=== PATIENT | female | born 1980 | race Caucasian/White ===

== ENCOUNTER 2023-04-23 13:55 | Inpatient (IN) | payer MEDICAID ==
[~2023-04-23] VITALS: Ht 167.6 cm; Wt 89.4 kg
[2023-04-23 14:04] VITALS: BP 145/70
[2023-04-23 14:26] LABS: APPEARANCE,URINE CLEAR (CLEAR); BILIRUBIN,URINE NEGATIVE (NEGATIVE); BLOOD, URINE 1+ (NEGATIVE); COLOR,URINE YELLOW (YELLOW); LEUKOCYTE ESTERASE ,URINE NEGATIVE (NEGATIVE); NITRITE, URINE NEGATIVE (NEGATIVE); PH,URINE 7.5 (5.0-9.0); UGLUCOSE NEGATIVE (NEGATIVE)
[2023-04-23 14:26] LABS: BASOPHILS % (AUTO) 0.5 % (0.0-2.0); EOSINOPHILS % (AUTO) 0.4 % (0.0-4.0); HEMATOCRIT 39.3 % (36-48); HEMOGLOBIN 13.2 g/dL (12.0-16.0); LYMPHOCYTES # (AUTO) 2.2 K/uL (2.5-16.5); MEAN CORPUSCULAR HEMOGLOBIN 28 pg (27-31); MEAN CORPUSCULAR HGB CONC 34 g/dL (33-37); MEAN CORPUSCULAR VOLUME 84.2 fL (80-94); MONOCYTES # (AUTO) 0.7 K/uL (0.8-1.0); MONOCYTES % (AUTO) 7.4 % (1.7-9.3); NEUTROPHILS % (AUTO) 66.7 % (42.2-75.2); PLATELET COUNT (AUTO) 322 K/uL (140-450); RED BLOOD CELL COUNT(AUTO) 4.66 MIL/uL (4.20-5.40); RED CELL DISTRIBUTION WIDTH 14.4 % (11.6-13.7); WHITE BLOOD COUNT (AUTO) 8.9 K/uL (4.8-10.8)
[2023-04-23 14:36] LABS: RBC,URINE 0-5 /HPF (0-5)
[2023-04-23 14:37] LABS: OTHER CRYSTALS,URINE SODIUM URATES 1+ /HPF (None Seen)
[2023-04-23 14:44] LABS: ALBUMIN 3.7 g/dL (3.4-5.0); ANION GAP 14.1 (8-16); CARBON DIOXIDE 26.4 mmol/L (21-32); CREATININE 0.6 mg/dL (0.6-1.3); POTASSIUM 3.5 mmol/L (3.5-5.1); TOTAL BILIRUBIN 0.7 mg/dL (0.0-1.0)
[2023-04-23] MEDS ORDERED: ONDANSETRON 4 MG ODT PO ONE (15:15)
[2023-04-23] MEDS ORDERED: FAMOTIDINE 20 MG TAB PO ONE (15:15)
[2023-04-23] MEDS ORDERED: ALUMINUM HYD/MAG/SIMETHICONE 30 ML UDC PO ONE (15:15)
[2023-04-23] MEDS ORDERED: FAMOTIDINE 20 MG TAB ONE (17:30)
[2023-04-23] MEDS ORDERED: ALUMINUM HYD/MAG/SIMETHICONE 30 ML UDC ONE (17:30)
[2023-04-23] MEDS ORDERED: ONDANSETRON 4 MG ODT ONE (17:31)
[2023-04-23] MEDS ORDERED: KETOROLAC 15 MG/ML VIAL IVP ONE (18:50)
[2023-04-23] MEDS ORDERED: ONDANSETRON 4 MG/2 ML VIAL IVP ONE (18:50)
[2023-04-23] MEDS ORDERED: NACL 0.9% 1,000 ML IV ONE (18:50)
[2023-04-23] MEDS ORDERED: MORPHINE SULFATE 4 MG/ML SYR IVP ONE ×2 (18:50→20:00)
--- NOTE | 2023-04-23 19:58 | NUR ---
Patient endorsed by Ish OLSON. Patient alert and comfortable in bed. No signs of distress.
[2023-04-23] MEDS: DEXT 5% /NACL 0.9% 1,000 ML IV SCH (20:45)
--- NOTE | 2023-04-23 20:45 | NUR ---
Patient will be admitted to care of Dr. Barajas. Admited to [facility]. Will go to room 112B. Belongings list completed. Report to Sydney OLSON.
[2023-04-23] MEDS ORDERED: POTASSIUM CHLORIDE 10 MEQ TABER PO PRN (22:10)
[2023-04-23] MEDS ORDERED: ACETAMINOPHEN 325 MG TAB PO PRN (22:10)
[2023-04-23] MEDS ORDERED: ZOLPIDEM 5 MG TAB PO PRN (22:10)
[2023-04-23] MEDS ORDERED: DOCUSATE SODIUM 100 MG GELCAP PO PRN (22:10)
[2023-04-23] MEDS ORDERED: guaiFENesin DM 200/20 MG-10 ML 10 ML UDC PO PRN (22:10)
--- NOTE | 2023-04-23 22:30 | NUR ---
PT WAS ADMITTED TO [facility] DEPARTMENT FROM ER VIA WHEEL CHAIR WITH DIAGNOSIS OF BILIARY COLIC. PT IS AOX4, AMBULATORY, ABLE TO VERBALIZE NEEDS AND ABLE TO FOLLOW COMMANDS. PT IS ON ROOM AIR AND ON NPO EXCEPT MEDS DIET. PT HAS IV ON RIGHT AC GAUGE 18 RUNNING WITH D5NS AT 125ML/HR. PT SKIN IS INTACT. PT WAS ORIENTED TO ROOM/HOSPITAL, BED BUTTONS AND CALL LIGHT. ALL SAFETY MEASURES IMPLEMENTED. BED IN LOW POSITION, BED WHEELS ON LOCK AND CALL LIGHT WITHIN REACH.
[2023-04-23 22:47] LABS: CHOL/HDL RATIO 3.7 (1-4.5); MAGNESIUM 1.9 mg/dL (1.8-2.4); PHOSPHORUS 3.8 mg/dL (2.5-4.9); THYROID STIMULATING HORMONE 1.54 uIU/mL (0.34-3.74)
[2023-04-24] VITALS: BP 130/69
--- NOTE | 2023-04-24 | NUR ---
PT IS ON SLEEP. CHEST RISE AND FALL SYMMETRICALLY NOTED. RESPIRATION IS EVEN AND UNLABORED. ALL SAFETY MEASURES IMPLEMENTED. BED IN LOW POSITION, BED WHEELS ON LOCK AND CALL LIGHT WITHIN REACH.
[2023-04-24] MEDS: MORPHINE SULFATE 2 MG/ML SYR IVP PRN ×3 (01:26→15:44)
[2023-04-24] MEDS: ONDANSETRON 4 MG/2 ML VIAL IM/IVP PRN (01:26)
--- NOTE | 2023-04-24 01:26 | NUR ---
PT WAS GIVEN PRN PAIN MEDICATION DUE TO ABDOMINAL PAIN WITH PAIN SCALE OF 8/10. ALL SAFETY MEASURES IMPLEMENTED. BED IN LOW POSITION, BED WHEELS ON LOCK AND CALL LIGHT WITHIN REACH.
--- NOTE | 2023-04-24 04:00 | NUR ---
CHECKED THE PT, STILL ON SLEEP. CHEST RISE AND FALL SYMMETRICALLY NOTED. RESPIRATION IS EVEN AND UNLABORED. ALL SAFETY MEASURES IMPLEMENTED. BED IN LOW POSITION, BED WHEELS ON LOCK AND CALL LIGHT WITHIN REACH.
[2023-04-24] MEDS: DEXT 5% /NACL 0.9% 1,000 ML IV SCH ×3 (04:48→20:45)
[2023-04-24 06:14] LABS: BASOPHILS % (AUTO) 0.5 % (0.0-2.0); EOSINOPHILS # (AUTO) 0.1 K/uL (0-0.4); EOSINOPHILS % (AUTO) 1.4 % (0.0-4.0); HEMATOCRIT 36.8 % (36-48); HEMOGLOBIN 12.3 g/dL (12.0-16.0); LYMPHOCYTES # (AUTO) 1.7 K/uL (2.5-16.5); LYMPHOCYTES % (AUTO) 38.7 % (20.5-51.1); MEAN CORPUSCULAR HEMOGLOBIN 28 pg (27-31); MEAN CORPUSCULAR HGB CONC 33 g/dL (33-37); MEAN CORPUSCULAR VOLUME 84.9 fL (80-94); MONOCYTES # (AUTO) 0.4 K/uL (0.8-1.0); MONOCYTES % (AUTO) 9.9 % (1.7-9.3); NEUTROPHILS # (AUTO) 2.2 K/uL (1.8-7.7); NEUTROPHILS % (AUTO) 49.5 % (42.2-75.2); PLATELET COUNT (AUTO) 276 K/uL (140-450); RED BLOOD CELL COUNT(AUTO) 4.34 MIL/uL (4.20-5.40); RED CELL DISTRIBUTION WIDTH 14.4 % (11.6-13.7); WHITE BLOOD COUNT (AUTO) 4.4 K/uL (4.8-10.8)
[2023-04-24 06:28] LABS: ANION GAP 11.3 (8-16); CARBON DIOXIDE 26.7 mmol/L (21-32); CREATININE 0.5 mg/dL (0.6-1.3)
--- NOTE | 2023-04-24 07:21 | NUR ---
PT IS STABLE. ENDORSED PT TO MORNING SHIFT NURSE FOR CONTINUITY OF CARE.
--- NOTE | 2023-04-24 07:24 | NUR ---
got report from the night nurse, pt awake complaining of pain.[id number]
[2023-04-24] MEDS: HYDROcodone/APAP 7.5/325 MG 1 TAB PO PRN (07:53)
[2023-04-24 08:00] VITALS: BP 116/57
--- NOTE | 2023-04-24 09:00 | NUR ---
PATIENT HAS BEEN SCREENED AND CATEGORIZED LOW NUTRITION RISK. PATIENT WILL BE SEEN WITHIN 7 DAYS OF ADMISSION. 04/30/[address]
[2023-04-24] MEDS: PANTOPRAZOLE 40 MG TABEC PO SCH (09:11)
[2023-04-24] MEDS: ursodioL 300 MG CAP PO SCH ×2 (09:19→17:44)
[2023-04-24 16:00] VITALS: BP 121/62
--- NOTE | 2023-04-24 16:28 | NUR ---
DC PLANNING A 43 Y.O.FEMALE PATIENT ADMITTED TO TELEMETRY FOR EVALUATION OF ACUTE ONSET EPIGASTRIC ABDOMINAL PAIN RADIATING TO THE BACK WITH NAUSEA AND NON BILIOUS VOMITING.GALL BLADDER US SHOWS HEPATIC STEATOSIS ,CHOLELITHIASIS.ABDOMEN/PELVIS CT SIGNIFICANT FOR GALLSTONE.ON ZOFRAN FOR NAUSEA AND MSO4 AND NORCO FOR PAIN CONTROL.SURGERY ON BOARD.DC PLAN - HOME WHEN PATIENT CONDITION IMPROVES.CM TO FOLLOW.
--- NOTE | 2023-04-24 19:30 | NUR ---
RECEIVED PT ON BED, AWAKE AND ALERT ABLE TO VERBALIZED NEEDS. PT IS AMBULATORY. PT IS NPO EXCEPT MEDS AT THIS TIME. NO NAUSEA AND VOMITING. IV SITE ON RIGHT AC INTACT AND PATENT, INFUSING D5NS AT 125ML/HR.
--- NOTE | 2023-04-24 19:44 | NUR ---
GAVE REPORT TO THE NIGHT NURSE PT STABLE. [id number]
[2023-04-24 20:00] VITALS: BP 117/58
[2023-04-25] MEDS: DEXT 5% /NACL 0.9% 1,000 ML IV SCH ×3 (04:07→20:45)
[2023-04-25] MEDS: HYDROcodone/APAP 7.5/325 MG 1 TAB PO PRN (05:52)
--- NOTE | 2023-04-25 05:52 | NUR ---
PT COMPLAINTS OF ABDOMINAL PAIN 04/26, PAIN MEDICATION NORCO 7.5 ADMINISTERED ORDER.
[2023-04-25 06:31] LABS: ANION GAP 11.5 (8-16); CARBON DIOXIDE 25.5 mmol/L (21-32); CREATININE 0.5 mg/dL (0.6-1.3)
--- NOTE | 2023-04-25 07:30 | NUR ---
RECEIVED REPORT FROM PERMASTONE INSTALLER NURSE FOR CONTINUITY OF CARE. PT IS AWAKE, NO SIGNS OF DISTRESS. CALL LIGHT WITHIN REACH.
[2023-04-25 07:50] LABS: BASOPHILS % (AUTO) 0.6 % (0.0-2.0); EOSINOPHILS # (AUTO) 0.1 K/uL (0-0.4); EOSINOPHILS % (AUTO) 1.8 % (0.0-4.0); HEMATOCRIT 36.4 % (36-48); HEMOGLOBIN 12.3 g/dL (12.0-16.0); LYMPHOCYTES # (AUTO) 1.5 K/uL (2.5-16.5); LYMPHOCYTES % (AUTO) 29.5 % (20.5-51.1); MEAN CORPUSCULAR HEMOGLOBIN 29 pg (27-31); MEAN CORPUSCULAR HGB CONC 34 g/dL (33-37); MEAN CORPUSCULAR VOLUME 84.7 fL (80-94); MONOCYTES # (AUTO) 0.4 K/uL (0.8-1.0); MONOCYTES % (AUTO) 8.1 % (1.7-9.3); PLATELET COUNT (AUTO) 276 K/uL (140-450); RED CELL DISTRIBUTION WIDTH 14.1 % (11.6-13.7)
[2023-04-25 08:00] VITALS: BP 113/70
[2023-04-25 08:07] LABS: T4 (THYROXINE) 8.3 ug/dL (4.5-12.0)
[2023-04-25] MEDS: PANTOPRAZOLE 40 MG TABEC PO SCH (08:19)
[2023-04-25] MEDS: ursodioL 300 MG CAP PO SCH ×2 (10:04→18:03)
--- NOTE | 2023-04-25 19:29 | NUR ---
ENDORSED TO LINOLEUM MECHANIC NURSE FOR CONTINUITY OF CARE. PT IS AWAKE AND STABLE, CALL LIGHT WITHIN REACH.
--- NOTE | 2023-04-25 19:30 | NUR ---
RECEIVED PT ON BED FROM DAY RN FOR CONTINUITY OF CARE. PT IS AWAKE,ALERT AND ORIENTED X 4.PT ABLE TO VERBALIZED NEEDS. PT IS AMBULATORY.FAMILY AT BEDSIDE, PT IS NPO EXCEPT MEDS AT THIS TIME. NO NAUSEA AND VOMITING. IV SITE ON L HAND G22, INTACT AND PATENT, INFUSING D5NS AT 125ML/HR. POC DISCUSSED. ALL PRECAUTIONS IN PLACE. CALL LIGHT WITHIN REACH. WILL CONTINUE TO MONITOR.
[2023-04-26] VITALS: BP 120/73
[2023-04-26] MEDS: DEXT 5% /NACL 0.9% 1,000 ML IV SCH ×2 (03:57→12:45)
[2023-04-26] MEDS: HYDROcodone/APAP 7.5/325 MG 1 TAB PO PRN (03:59)
[2023-04-26 04:00] VITALS: BP 118/61
--- NOTE | 2023-04-26 04:05 | NUR ---
PT COMPLAINED OF ABDOMINAL PAIN. PRN NORCO GIVEN. WILL CONTINUE TO MONITOR.
--- NOTE | 2023-04-26 07:08 | NUR ---
PT IS STABLE. NO ACUTE EVENTS THROUGHOUT THE NIGHT. NO S/SX OF DISTRESS AT THE MOMENT. ALL NEEDS MET. ALL SAFETY PRECAUTIONS IN PLACE. CALL LIGHT WITHIN REACH. WILL ENDORSE TO DAY RN.
--- NOTE | 2023-04-26 07:11 | NUR ---
RECEIVED PATIENT FROM PM NURSE FOR CONTINUATION OF CARE.
[2023-04-26 07:26] LABS: BASOPHILS % (AUTO) 0.4 % (0.0-2.0); EOSINOPHILS # (AUTO) 0.1 K/uL (0-0.4); EOSINOPHILS % (AUTO) 2.1 % (0.0-4.0); HEMATOCRIT 35.1 % (36-48); HEMOGLOBIN 11.8 g/dL (12.0-16.0); LYMPHOCYTES # (AUTO) 1.7 K/uL (2.5-16.5); LYMPHOCYTES % (AUTO) 31.6 % (20.5-51.1); MEAN CORPUSCULAR HEMOGLOBIN 28 pg (27-31); MEAN CORPUSCULAR HGB CONC 34 g/dL (33-37); MEAN CORPUSCULAR VOLUME 84.1 fL (80-94); MONOCYTES # (AUTO) 0.5 K/uL (0.8-1.0); MONOCYTES % (AUTO) 8.9 % (1.7-9.3); NEUTROPHILS # (AUTO) 3.1 K/uL (1.8-7.7); PLATELET COUNT (AUTO) 277 K/uL (140-450); RED BLOOD CELL COUNT(AUTO) 4.17 MIL/uL (4.20-5.40); RED CELL DISTRIBUTION WIDTH 14.1 % (11.6-13.7); WHITE BLOOD COUNT (AUTO) 5.4 K/uL (4.8-10.8)
[2023-04-26 07:34] LABS: ANION GAP 10.9 (8-16); CARBON DIOXIDE 25.9 mmol/L (21-32); CREATININE 0.5 mg/dL (0.6-1.3); POTASSIUM 3.8 mmol/L (3.5-5.1)
[2023-04-26] MEDS: ursodioL 300 MG CAP PO SCH ×2 (08:00→17:00)
[2023-04-26] MEDS: PANTOPRAZOLE 40 MG TABEC PO SCH (09:00)
--- NOTE | 2023-04-26 13:30 | NUR ---
MD MADE ROUNDS. PATIENT TO BE OBSERVED SINCE PATIENT IS STILL HAVING NAUSEA AND VOMITING.
[2023-04-26 16:00] VITALS: BP 121/69
--- NOTE | 2023-04-26 19:20 | NUR ---
ENDORSED PATIENT TO PM NURSE FOR CONTINUATION OF CARE
--- NOTE | 2023-04-26 19:30 | NUR ---
HAND-OFF REPORT FROM TWYLAJANES OLSON FOR CONTINUITY OF CARE. ENDORSED WAS FOR POSSIBLE D/C BUT NAUSEA WITH EMESIS PERSISTS. PT RECEIVED WITH STATED N/V. PROVIDE COMFORT MEASURE AND NON-STIMULATING ENVIRONMENT. PLAN: TO ALLOW PT TO SLEEP WITHOUT INTERRUPTION UNTIL SHE IS AWAKENED ON OWN. OTHERWISE MONITOR ON TELE. Addendum: 04/27/23 at 0901 by Agency 05 WESLEY OLSON AMEND: OTHERWISE MONITOR ON ROUNDING WITHOUT AWAKING
[2023-04-26 20:00] VITALS: BP 112/66
[2023-04-27 06:59] LABS: ANION GAP 13.1 (8-16); CARBON DIOXIDE 25.6 mmol/L (21-32); CREATININE 0.5 mg/dL (0.6-1.3); POTASSIUM 3.7 mmol/L (3.5-5.1)
[2023-04-27 07:02] LABS: BASOPHILS % (AUTO) 0.4 % (0.0-2.0); EOSINOPHILS # (AUTO) 0.1 K/uL (0-0.4); HEMATOCRIT 36.4 % (36-48); HEMOGLOBIN 12.2 g/dL (12.0-16.0); LYMPHOCYTES # (AUTO) 1.7 K/uL (2.5-16.5); LYMPHOCYTES % (AUTO) 31.3 % (20.5-51.1); MEAN CORPUSCULAR HEMOGLOBIN 28 pg (27-31); MEAN CORPUSCULAR HGB CONC 34 g/dL (33-37); MEAN CORPUSCULAR VOLUME 84.6 fL (80-94); MONOCYTES # (AUTO) 0.5 K/uL (0.8-1.0); MONOCYTES % (AUTO) 8.8 % (1.7-9.3); NEUTROPHILS # (AUTO) 3.1 K/uL (1.8-7.7); NEUTROPHILS % (AUTO) 57.5 % (42.2-75.2); PLATELET COUNT (AUTO) 266 K/uL (140-450); RED BLOOD CELL COUNT(AUTO) 4.31 MIL/uL (4.20-5.40); WHITE BLOOD COUNT (AUTO) 5.5 K/uL (4.8-10.8)
--- NOTE | 2023-04-27 07:30 | NUR ---
HAND-OFF REPORT TO RETURNING NURSE FOR CONTINUITY OF CARE WITH BEDSIDE ROUNDS FOLLOWING REPORT. PT STATED SMALL EMESIS DURING NIGHT WITH NAUSEA NOT TOTALLY SUBSIDING OF A.M. PT AWAKE AND IN NO ACUTE DISTRESS. RELINQUISHED CARE OF PT AT THIS TIME. UNEVENTFUL NIGHT.
[2023-04-27 08:00] VITALS: BP 113/71
[2023-04-27] MEDS: ursodioL 300 MG CAP PO SCH (08:08)
[2023-04-27] MEDS: HYDROcodone/APAP 7.5/325 MG 1 TAB PO PRN (08:15)
[2023-04-27] MEDS: PANTOPRAZOLE 40 MG TABEC PO SCH (08:15)
[2023-04-27] MEDS: ONDANSETRON 4 MG/2 ML VIAL IM/IVP PRN (08:18)
[2023-04-27] MEDS ORDERED: IBUP-2213 PO (09:49)
[2023-04-27] MEDS ORDERED: PANT40EC PO (09:50)
[2023-04-27] MEDS: DEXT 5% /NACL 0.9% 1,000 ML IV SCH (13:05)
[2023-04-27 13:06] VITALS: BP 113/71
[2023-04-27 13:23] VITALS: BP 113/71
== END 2023-04-27 15:00 | disposition home or self-care (01) ==
LOC: MED 13:55 → MMU 20:43 → MTU 22:17
PROVIDERS: ADMIT Family Medicine; ATTEND Family Medicine
DX: K80.71 Calculus of gallbladder and bile duct without cholecystitis with obstruction (principal); D72.819 Decreased white blood cell count, unspecified; K52.9 Noninfective gastroenteritis and colitis, unspecified; E11.9 Type 2 diabetes mellitus without complications; Z20.822 Contact with and (suspected) exposure to COVID-19
CPT/HCPCS: 36415; 76705; 78445; 80048; 80053; 81001; 81025; 82150; 83036; 83690; 83735; 83880; 84100; 84436; 84439; 84443; 84479; 84484; 85025; 85610; 85730; 87081; 93005; 96374; 96375; 96376; 99285; J1885; J2270; J2405; Q0092; Q0162